=== PATIENT | female | born 1960 | race American Indian/Alaskan Native ===

== ENCOUNTER 2020-07-01 12:31 | Emergency (ER) | payer BC ==
--- NOTE | 2020-07-01 12:53 | Event Note ---
ED Screening Note Date of service: 07/01/20 Time: 12:51 ED Screening Note: 60-year-old femalefemale with no medical conditions presents to ED today with right-sided facial swelling and tingling that began today. Patient denies pain, headache,. She denies throat swelling or difficulty swallowing This initial assessment/diagnostic orders/clinical plan/treatment(s) is/are subject to change based on patients health status, clinical progression and re- assessment by fellow clinical providers in the ED. Further treatment and workup at subsequent clinical providers discretion. Patient/guardian urged not to elope from the ED as their condition may be serious if not clinically assessed and man aged. Initial orders include: Steroids, antihistamine fasttrack
[2020-07-01] MEDS ORDERED: diphenhydrAMINE 25 MG CAP PO ONE (21:34)
[2020-07-01] MEDS ORDERED: predniSONE 20 MG TAB PO ONE (21:34)
[2020-07-01] MEDS ORDERED: METOCLOPRAMIDE 10 MG TAB PO ONE (21:36)
[2020-07-01] MEDS ORDERED: ACETAMINOPHEN 500 MG TAB PO ONE (21:39)
--- NOTE | 2020-07-01 22:31 | Cat Scan Report ---
CT head without contrast INDICATION : headache. TECHNIQUE: Axial imaging performed from the skull apex through the skull base without the use of con trast. All CT scans at this location are performed using CT dose reduction for ALARA by means of aut omated exposure control. COMPARISON: None FINDINGS: Parenchyma: No acute intracranial hemorrhage or parenchymal abnormality. Ventricles: Ventricles are normal in size and appear symmetric. Soft tissues: Mild soft tissue swelling and small hematoma formation along the right frontal scalp i n the temporal region. With no underlying collection or obvious soft tissue laceration. Bones: No acute osseous abnormality. Sinuses: Sinuses and mastoid air cells are clear. IMPRESSION: 1. No acute intracranial abnormality. 2. Right frontal scalp soft tissue injury as outlined above with no collection, laceration, or underl leticia fracture. Signer Name: Ton Martinez MD Signed: 07/01/2020 10:27 PM Workstation Name: [id number]
--- NOTE | 2020-07-01 23:08 | Emergency Department Report ---
ED General Adult HPI - General Chief complaint: Allergic Reaction Stated complaint: RT SIDE PAIN/SWOLLEN HEAD Time Seen by Provider: 07/01/20 21:34 Source: patient Mode of arrival: Ambulatory Limitations: No Limitations - History of Present Illness Initial comments: Patient 60-year-old -[place] female who presents for subjective allergic reaction x2 days. Patient states she was sitting at her computer computer and began to feel tingling and numbness that radiated to her right cheekbone. Patient denies LOC states pain is 3/10, pain is intermittent. speach clear, no neuro deficits. i Severity scale (0 -10): 2 - Related Data Previous Rx's Medication Instructions Recorded Last Taken Type Ibuprofen [Motrin 800 MG tab] 800 mg PO Q8HR PRN #30 tablet 07/01/20 Unknown Rx Allergies Allergy/AdvReac Type Severity Reaction Status Date / Time No Known Allergies Allergy Unverified 01/09/15 06:10 ED Review of Systems ROS: Stated complaint: RT SIDE PAIN/SWOLLEN HEAD Other details as noted in HPI Constitutional: denies: chills, fever Eyes: denies: eye pain, eye discharge, vision change ENT: as per HPI Respiratory: denies: cough, shortness of breath, wheezing Cardiovascular: denies: chest pain, palpitations Endocrine: no symptoms reported Gastrointestinal: denies: abdominal pain, nausea, diarrhea Genitourinary: as per HPI Musculoskeletal: as per HPI Skin: other (contusion right frontal ). denies: rash, lesions Neurological: denies: headache, weakness, numbness, paresthesias, confusion, vertigo Psychiatric: denies: anxiety, depression ED Past Medical Hx - Past Medical History Previous Medical History?: No - Surgical History Past Surgical History?: No - Social History Smoking Status: Never Smoker Substance Use Type: None - Medications Home Medications: Home Medications Medication Instructions Recorded Confirmed Last Taken Type Ibuprofen [Motrin 800 MG tab] 800 mg PO Q8HR PRN #30 tablet 07/01/20 Unknown Rx ED Physical Exam - General Limitations: No Limitations General appearance: alert, in no apparent distress - Head Head exam: Present: normocephalic, normal inspection - Eye Eye exam: Present: normal appearance, PERRL, EOMI. Absent: conjunctival injection, nystagmus, periorbital tenderness Pupils: Present: normal accommodation - Expanded Eye Exam Expanded Pupils: Regular, Round: Bilateral, Reactive: Bilateral Sclera/Conjunctival: Normal Inspection: Bilateral, Exudate: Left Anterior chamber: Normal Inspection: Bilateral Posterior chamber: Deferred: Bilateral Visual acuity (R) = 20/: 30 Visual acuity (L) = 20/: 30 With correction: No - ENT ENT exam: Present: normal exam, normal orophraynx, mucous membranes moist, TM's normal bilaterally, normal external ear exam - Neck Neck exam: Present: normal inspection, full ROM. Absent: tenderness, meningismus, lymphadenopathy, thyromegaly - Respiratory Respiratory exam: Present: normal lung sounds bilaterally. Absent: wheezes, stridor, chest wall tenderness - Cardiovascular Cardiovascular Exam: Present: regular rate, normal rhythm, normal heart sounds. Absent: systolic murmur, diastolic murmur, rubs, gallop - GI/Abdominal GI/Abdominal exam: Present: soft, normal bowel sounds. Absent: distended, tenderness, guarding, rebound, rigid, bruit, hernia - Rectal Rectal exam: Present: deferred - Extremities Exam Extremities exam: Present: normal inspection, full ROM. Absent: tenderness, pedal edema - Back Exam Back exam: Present: normal inspection - Neurological Exam Neurological exam: Present: alert, oriented X3, CN II-XII intact, normal gait, reflexes normal. Absent: motor sensory deficit - Psychiatric Psychiatric exam: Present: normal affect, normal mood. Absent: depressed, agitated, anxious, homicidal ideation, suicidal ideation - Skin Skin exam: Present: warm, dry, intact, normal color. Absent: rash ED Course Vital Signs 07/01/20 07/01/20 12:47 18:55 Temperature 98.7 F 98.8 F Pulse Rate 74 68 Respiratory 18 18 Rate Blood Pressure 142/62 112/55 O2 Sat by Pulse 96 99 Oximetry ED Medical Decision Making - Radiology Data Radiology results: report reviewed, image reviewed Findings Reporting MD: Ton Martinez Dictation Time: July 01, 2020 21:27 [employer] Maker: Not available Instrumental Musician Date: CT head without contrast INDICATION : headache. TECHNIQUE: Axial imaging performed from the skull apex through the skull base without the use of contrast. All CT scans at this location are performed using CT dose reduction for ALARA by means of automated exposure control. COMPARISON: None FINDINGS: Parenchyma: No acute intracranial hemorrhage or parenchymal abnormality. Ventricles: Ventricles are normal in size and appear symmetric. Soft tissues: Mild soft tissue swelling and small hematoma formation along the right frontal scalp in the temporal region. With no underlying collection or obvious soft tissue laceration. Bones: No acute osseous abnormality. Sinuses: Sinuses and mastoid air cells are clear. IMPRESSION: 1. No acute intracranial abnormality. 2. Right frontal scalp soft tissue injury as outlined above with no collection, laceration, or underlying fracture. Signer Name: Ton Martinez MD Signed: 07/01/2020 9:27 PM Workstation Name: [id number] - Medical Decision Making CT Head: No acute intracranial abnormality, Right frontal scalp soft tissue injury as outlined above with no collection, laceration, or underlying fracture. this is a scalp contusion, there are no neuro deficits, pt is a/o x 3, ambulatory with steady gait, perrla , eomi, no decreased vision, pt denies fall, injury, or trauma. plan NSAIDs prn pain follow up with pcp in 2-3 days. pt verbalized agreement and understanding of same. Critical care attestation.: If time is entered above; I have spent that time in minutes in the direct care of this critically ill patient, excluding procedure time. ED Disposition Clinical Impression: Scalp contusion Qualifiers: Encounter type: initial encounter Qualified Code(s): S00.03XA - Contusion of scalp, initial encounter Scalp hematoma Qualifiers: Encounter type: initial encounter Qualified Code(s): S00.03XA - Contusion of scalp, initial encounter Disposition: DC-01 TO HOME OR SELFCARE Is pt being admited?: No Does the pt Need Aspirin: No Condition: Stable Instructions: Facial or Scalp Contusion, [id number], How to Use Cold Therapy, Facial or Scalp Contusion Prescriptions: Ibuprofen [Motrin 800 MG tab] 800 mg PO Q8HR PRN #30 tablet PRN Reason: pain Referrals: MARYANN LAL MD [Staff Physician] - 3-5 Days Forms: Work/School Release Form(ED) Time of Disposition: 23:40
[2020-07-02 00:19] VITALS: BP 140/90
== END 2020-07-01 23:55 | disposition home or self-care (01) ==
LOC: ED 12:31
DX: S00.03XA Contusion of scalp, initial encounter (principal); Z79.899 Other long term (current) drug therapy; X58.XXXA Exposure to other specified factors, initial encounter; Y93.89 Activity, other specified; Y92.89 Other specified places as the place of occurrence of the external cause; Y99.8 Other external cause status
CPT/HCPCS: 70450; 99283; J7512